=== PATIENT | female | born 1955 | race Caucasian/White ===

== ENCOUNTER 2023-02-11 11:11 | Emergency (ER) | payer OTHER ==
[~2023-02-11] VITALS: Ht 170.2 cm; Wt 63.5 kg
[2023-02-11] MEDS ORDERED: SIMVASTATIN20 MG PO (11:22)
[2023-02-11] MEDS ORDERED: LISINOPRIL40 MG PO (11:23)
[2023-02-11] MEDS ORDERED: SYNTHROID75 MCG PO (11:23)
[2023-02-11] MEDS ORDERED: ST. JOSEPH ASPI81 M2 PO (11:23)
== END 2023-02-11 13:38 | disposition home or self-care (01) ==
LOC: ER 11:11
DX: J06.9 Acute upper respiratory infection, unspecified (principal); E03.9 Hypothyroidism, unspecified